=== PATIENT | female | born 1940 | race Hispanic/Latino ===

== ENCOUNTER → 2017-08-03 | Outpatient (CLI) | payer MEDICARE | END | disposition home or self-care (01) | LOC: OIH 14:25 | PROVIDERS: ATTEND Family Medicine | DX: R05 Cough (principal); R06.02 Shortness of breath; M47.895 Other spondylosis, thoracolumbar region | CPT/HCPCS: 71046 ==

== ENCOUNTER 2018-04-24 11:36 | Emergency (ER) | payer MEDICARE ==
[2018-04-24 12:05] LABS: BILIRUBIN,URINE Negative (NEGATIVE); COLOR,URINE Dark Yellow (YELLOW); GLUCOSE, URINE (UA) Negative (NEGATIVE); KETONES,URINE Trace mg/dL (NEGATIVE); LEUKOCYTE ESTERASE ,URINE Trace (NEGATIVE); NITRATE,URINE Negative (NEGATIVE); OCCULT BLOOD,URINE Negative (NEGATIVE); PH,URINE 6.5 (5.0-8.0); PROTEIN,URINE POS 1+ (NEGATIVE)
[2018-04-24 12:07] LABS: APPEARANCE,URINE SLIGHTLY CLOUDY (CLEAR)
[2018-04-24 12:21] LABS: BASOPHILS % (AUTO) 0.5 % (0.0-5.0); EOSINOPHILS % (AUTO) 2.6 % (0.0-8.0); HEMATOCRIT 38.4 % (36-48); LYMPHOCYTES % (AUTO) 36.9 % (21.0-51.0); MEAN CORPUSCULAR HEMOGLOBIN 29.4 pg (27.0-33.0); MEAN CORPUSCULAR HGB CONC 32.5 g/dL (32.0-36.0); MEAN CORPUSCULAR VOLUME 90.5 fL (79-99); MONOCYTES % (AUTO) 11.1 % (3.0-13.0); NEUTROPHILS % (AUTO) 48.9 % (40.0-77.0); PLATELET COUNT (AUTO) 217 K/uL (130-400); RED BLOOD CELL COUNT(AUTO) 4.25 MIL/uL (4.00-5.50); RED CELL DISTRIBUTION WIDTH 14.6 % (11.0-15.5); WHITE BLOOD COUNT (AUTO) 5.6 K/uL (4.8-10.8)
[2018-04-24 12:22] LABS: BACTERIA,URINE Rare /HPF (None Seen); MUCUS,URINE Moderate LPF (None Seen); RBC,URINE None Seen /HPF (0-1); WBC,URINE 0-1 /HPF (0-1)
[2018-04-24 12:31] LABS: CREATININE 0.6 mg/dL (0.5-1.5); POTASSIUM 4.5 mmol/L (3.5-5.1)
[2018-04-24 12:36] LABS: ALBUMIN 3.8 g/dL (3.5-5.0); BILIRUBIN,TOTAL 0.4 mg/dL (0.2-1.0)
== END 2018-04-24 14:09 | disposition home or self-care (01) ==
LOC: EDH 11:36
DX: F41.1 Generalized anxiety disorder (principal); I10 Essential (primary) hypertension; M19.90 Unspecified osteoarthritis, unspecified site; Z98.890 Other specified postprocedural states; Z90.710 Acquired absence of both cervix and uterus
CPT/HCPCS: 36415; 71045; 80053; 81001; 84484; 85025; 93005

== ENCOUNTER 2018-10-01 00:28 | Emergency (ER) | payer MEDICARE ==
[2018-10-01 01:13] LABS: BASOPHILS % (AUTO) 0.5 % (0.0-5.0); EOSINOPHILS % (AUTO) 2.3 % (0.0-8.0); HEMATOCRIT 34.9 % (36-48); LYMPHOCYTES % (AUTO) 37.8 % (21.0-51.0); MEAN CORPUSCULAR HEMOGLOBIN 29.3 pg (27.0-33.0); MEAN CORPUSCULAR HGB CONC 32.7 g/dL (32.0-36.0); MEAN CORPUSCULAR VOLUME 89.5 fL (79-99); MONOCYTES % (AUTO) 12.2 % (3.0-13.0); NEUTROPHILS % (AUTO) 47.2 % (40.0-77.0); PLATELET COUNT (AUTO) 197 K/uL (130-400); RED CELL DISTRIBUTION WIDTH 14.5 % (11.0-15.5); WHITE BLOOD COUNT (AUTO) 6.9 K/uL (4.8-10.8)
[2018-10-01 01:24] LABS: CREATININE 0.8 mg/dL (0.5-1.5); POTASSIUM 4.3 mmol/L (3.5-5.1)
[2018-10-01 01:30] LABS: B-TYPE NATRIURETIC PEPTIDE 94 pg/mL (0-100)
[2018-10-01 01:32] LABS: ALBUMIN 3.6 g/dL (3.5-5.0); BILIRUBIN,DIRECT 0.1 mg/dL (0.0-0.3); BILIRUBIN,TOTAL 0.2 mg/dL (0.2-1.0); TOTAL PROTEIN, SERUM 7.4 g/dL (6.0-8.3)
[2018-10-01] MEDS ORDERED: ACETAMINOPHEN EXTRA STRENGTH 500 MG TABLET ONE (02:12)
== END 2018-10-01 05:36 | disposition home or self-care (01) ==
LOC: EDH 00:28
DX: I10 Essential (primary) hypertension (principal); R51 Headache; F41.1 Generalized anxiety disorder; Z88.0 Allergy status to penicillin
CPT/HCPCS: 36415; 80048; 80076; 82550; 83735; 83880; 84484; 85025; 93005

== ENCOUNTER → 2018-11-08 | Outpatient (CLI) | payer MEDICARE | END | disposition home or self-care (01) | LOC: SHCH 15:04 | PROVIDERS: ATTEND Internal Medicine Cardiovascular Disease | DX: I11.9 Hypertensive heart disease without heart failure (principal) | CPT/HCPCS: 93306 ==

== ENCOUNTER 2019-04-01 10:09 | Day surgery (SDC) | payer MEDICARE ==
[2019-03-28 09:27] VITALS: BP 137/56
[2019-03-28 09:33] LABS: BASOPHILS % (AUTO) 0.3 % (0.0-5.0); HEMATOCRIT 36.8 % (36-48); LYMPHOCYTES % (AUTO) 40.2 % (21.0-51.0); MEAN CORPUSCULAR HEMOGLOBIN 27.3 pg (27.0-33.0); MEAN CORPUSCULAR HGB CONC 29.9 g/dL (32.0-36.0); MEAN CORPUSCULAR VOLUME 91.3 fL (79-99); MONOCYTES % (AUTO) 10.4 % (3.0-13.0); NEUTROPHILS % (AUTO) 46.9 % (40.0-77.0); PLATELET COUNT (AUTO) 270 K/uL (130-400); RED BLOOD CELL COUNT(AUTO) 4.03 MIL/uL (4.00-5.50); RED CELL DISTRIBUTION WIDTH 14.4 % (11.0-15.5); WHITE BLOOD COUNT (AUTO) 6.1 K/uL (4.8-10.8)
[2019-03-28 09:44] LABS: CREATININE 0.6 mg/dL (0.5-1.5); POTASSIUM 4.6 mmol/L (3.5-5.1)
[2019-03-28 09:47] LABS: APPEARANCE,URINE Cloudy (CLEAR); BILIRUBIN,URINE Negative (NEGATIVE); COLOR,URINE Dark Yellow (YELLOW); GLUCOSE, URINE (UA) Negative (NEGATIVE); KETONES,URINE Negative (NEGATIVE); LEUKOCYTE ESTERASE ,URINE Small (NEGATIVE); NITRATE,URINE Negative (NEGATIVE); OCCULT BLOOD,URINE Negative (NEGATIVE); PROTEIN,URINE Negative (NEGATIVE)
[2019-03-28 09:51] LABS: INR 0.95 (0.85-1.15); PARTIAL THROMBOPLASTIN TIME 26.3 SEC (26.3-35.5)
[2019-03-28 09:57] LABS: BACTERIA,URINE Rare /HPF (None Seen); MUCUS,URINE Few LPF (None Seen); RBC,URINE 0-1 /HPF (0-1); SQUAMOUS EPITHELIAL CELL,UR Few /HPF (0-2); WBC,URINE 0-1 /HPF (0-1)
--- NOTE | 2019-03-28 16:46 | NUR ---
PER DR. FINCH NO PRE-MED TO GIVE FOR SHRIMP ALLERGY.
[2019-04-01] VITALS (10 sets, daily range): BP systolic 123–150; BP diastolic 56–74
[~2019-04-01] VITALS: Ht 158.8 cm; Wt 83.0 kg
[~2019-04-01 10:09] MED LIST: ACET650T24 PO; ALBU90AE IH; AMLO5TAB9 PO; ASPI-1181 PO; HYOS-28 PO; ISOS30TA6 PO; LORA2TAB80 PO; MECL-160 PO; PANT40TA25 PO; PROCTOCM PR
[2019-04-01] MEDS ORDERED: SODIUM CHLORIDE 0.9% 1000ML 1,000 ML IV ONE (10:11)
--- NOTE | 2019-04-01 10:30 | NUR ---
ASSESSMENT PT HERE FOR PROCEDURE. VERY ANXIOUS. CRYING. SON AT BEDSIDE. PT DECIDING TO GO AHEAD WITH PROCEDURE.
[2019-04-01] MEDS ORDERED: NITROGLYCERIN 5 MG/ML 10 ML VIAL IV ONE (11:25)
[2019-04-01] MEDS ORDERED: MIDAZOLAM HCL 1 MG/ML 2ML VIAL ONE ×2 (11:25→11:35)
[2019-04-01] MEDS ORDERED: IOHEXOL 350 MG/ML 100ML INFUS..BTL IV ONE ×2 (11:25→11:26)
[2019-04-01] MEDS ORDERED: LIDOCAINE HCL 2% 20ML ONE (11:26)
[2019-04-01] MEDS ORDERED: BIVALIRUDIN 250 MG/VIAL IV ONE (11:26)
[2019-04-01] MEDS ORDERED: FENTANYL CITRATE PF 50 MCG/1 ML 2ML VIAL ONE (11:33)
--- NOTE | 2019-04-01 11:35 | NUR ---
PROCEDURE PT TAKEN TO PROCEDURE VIA [employer] SPECIALIST STAFF LIDIA LARSON.
[2019-04-01] MEDS ORDERED: [UNRECOGNIZED DRUG - OTHER] PO (11:41)
[2019-04-01] MEDS ORDERED: SODIUM CHLORIDE 0.9% 1000ML 1,000 ML IV SCH (12:38)
[2019-04-01] MEDS ORDERED: DEXTROSE 50%-WATER 50 ML DISP.SYRIN IV PRN (12:45)
[2019-04-01] MEDS ORDERED: NITROGLYCERIN 0.4 MG SL TAB SL PRN (12:45)
[2019-04-01] MEDS ORDERED: GLUCAGON 1MG KIT 1 MG ML IM PRN (12:45)
[2019-04-01] MEDS ORDERED: METOPROLOL TARTRATE 1 MG/ML 5ML VIAL IV PRN (12:45)
[2019-04-01] MEDS ORDERED: ACETAMINOPHEN-CODEINE 300/30MG TAB PO PRN (12:45)
--- NOTE | 2019-04-01 13:00 | NUR ---
ASSESSMENT RECEIVED PT FROM CLASSROOM ASSISTANTSTU LEVY RN. PT [id number]. INSTRUCTED ON IMPORTANCE OF KEEPING RIGHT LEG STRAIGHT AND NOT TO LIFT HEAD UP OFF OF BED AND NOT TO MOVE RIGHT LEG. PT VERBALIZED UNDERSTANDING.
--- NOTE | 2019-04-01 16:16 | NUR ---
REPORT REPORT GIVEN TO LIDIA IRWIN. PT BEDREST COMPLETE. SITTING UP IN BED WITH NO DIFFICULTIES. INSTRUCTIONS GIVEN TO PT AND PTS SON. DENIES ANY PAIN, SOB.
--- NOTE | 2019-04-01 16:21 | NUR ---
REPORT RECEIVED REPORT FROM Eric BATES RN TO RESUME CARE OF PATIENT , PT AWAKE AND ALERT IN BED,NO DISTRESS NOTED. DENIED ANY PAIN OR DISCOMFORTS. SON AT BEDSIDE
--- NOTE | 2019-04-01 17:15 | NUR ---
dc pt dc home via [place],no distress noted. pt denied any pain or discomforts. pt accompanied by son. right groin with no bleeding or hematoma. vs stable.
== END 2019-04-01 17:15 | disposition home or self-care (01) ==
LOC: DAH 10:09
PROVIDERS: ATTEND Internal Medicine Cardiovascular Disease
DX: R07.9 Chest pain, unspecified (principal); I25.10 Atherosclerotic heart disease of native coronary artery without angina pectoris; I11.9 Hypertensive heart disease without heart failure; M19.90 Unspecified osteoarthritis, unspecified site; Z79.82 Long term (current) use of aspirin; Z79.899 Other long term (current) drug therapy; Z88.0 Allergy status to penicillin; Z90.49 Acquired absence of other specified parts of digestive tract; Z98.890 Other specified postprocedural states; Z87.891 Personal history of nicotine dependence; Z91.013 Allergy to seafood; Z83.3 Family history of diabetes mellitus
CPT/HCPCS: 36415; 71045; 80048; 81001; 85025; 85610; 85730; 93005; 93460; A4215; A4216; A4221; A4222; A4223 ×2; A4606; A4663; C1760; C1894 ×3; J1644; J2250 ×2; J3010; J3490 ×2; J7030; Q9965; Q9967; 99156; 99157; J0583

== ENCOUNTER 2020-08-16 05:34 | Emergency (ER) | payer MEDICARE ==
[~2020-08-16 05:34] MED LIST changes: +AMLO-257 PO; -AMLO5TAB9 PO; -ASPI-1181 PO; +ASPI-1443 PO; -ISOS30TA6 PO; +ISOS30TA92 PO; -PANT40TA25 PO; +PANT40TA54 PO; +[UNRECOGNIZED DRUG - OTHER] PO
== END 2020-08-16 10:29 | disposition home or self-care (01) ==
LOC: EDH 05:34
DX: F41.9 Anxiety disorder, unspecified (principal); I10 Essential (primary) hypertension; M19.90 Unspecified osteoarthritis, unspecified site; Z91.013 Allergy to seafood; Z88.0 Allergy status to penicillin
CPT/HCPCS: 93005

== ENCOUNTER 2020-08-22 06:14 | Emergency (ER) | payer MEDICARE ==
[~2020-08-22] VITALS: Ht 162.6 cm; Wt 81.6 kg
[2020-08-22 06:26] VITALS: BP 153/93
[2020-08-22 06:29] VITALS: BP 136/72
[2020-08-22 08:00] VITALS: BP 153/56
[2020-08-22] MEDS ORDERED: METOCLOPRAMIDE 10 MG/2 ML VIAL IVP SCH (08:30)
[2020-08-22] MEDS ORDERED: KETOROLAC 15MG/ML VIAL (15MG/ML) IV SCH (08:30)
[2020-08-22 08:59] LABS: BASOPHILS % (AUTO) 0.3 % (0.0-5.0); EOSINOPHILS % (AUTO) 0.5 % (0.0-8.0); HEMATOCRIT 40.8 % (36-48); LYMPHOCYTES % (AUTO) 24.5 % (21.0-51.0); MEAN CORPUSCULAR HGB CONC 31.1 g/dL (32.0-36.0); MEAN CORPUSCULAR VOLUME 96.5 fL (79-99); MONOCYTES % (AUTO) 9.7 % (3.0-13.0); NEUTROPHILS % (AUTO) 64.8 % (40.0-77.0); PLATELET COUNT (AUTO) 270 K/uL (130-400); RED BLOOD CELL COUNT(AUTO) 4.23 MIL/uL (4.00-5.50); RED CELL DISTRIBUTION WIDTH 14.3 % (11.0-15.5); WHITE BLOOD COUNT (AUTO) 6.2 K/uL (4.8-10.8)
[2020-08-22 09:14] VITALS: BP 147/61
[2020-08-22 09:37] LABS: B-TYPE NATRIURETIC PEPTIDE 46 pg/mL (0-100)
[2020-08-22 09:47] LABS: ALBUMIN 3.7 g/dL (3.5-5.0); BILIRUBIN,TOTAL 0.3 mg/dL (0.2-1.0); CREATININE 0.5 mg/dL (0.5-1.5); POTASSIUM 3.8 mmol/L (3.5-5.1); TOTAL PROTEIN, SERUM 7.9 g/dL (6.0-8.3)
[2020-08-22 10:45] LABS: APPEARANCE,URINE Clear (CLEAR); BILIRUBIN,URINE Negative (NEGATIVE); COLOR,URINE Dark Yellow (YELLOW); GLUCOSE, URINE (UA) Negative (NEGATIVE); KETONES,URINE Negative (NEGATIVE); LEUKOCYTE ESTERASE ,URINE Negative (NEGATIVE); NITRATE,URINE Negative (NEGATIVE); OCCULT BLOOD,URINE Negative (NEGATIVE); PROTEIN,URINE POS 1+ mg/dL (NEGATIVE)
[2020-08-22] MEDS ORDERED: AMLODIPINE BESYLATE 5 MG TAB PO SCH (11:00)
[2020-08-22] MEDS ORDERED: ACETAMINOPHEN 325 MG TAB PO ONE (11:00)
[2020-08-22] MEDS ORDERED: ACETAMINOPHEN 325 MG TAB PO SCH (11:00)
[2020-08-22 11:12] LABS: RBC,URINE 0-1 /HPF (0-1)
[2020-08-22 11:13] LABS: BACTERIA,URINE Rare /HPF (None Seen); WBC,URINE 0-1 /HPF (0-1)
[2020-08-22 11:15] VITALS: BP 152/62
[2020-08-22] MEDS ORDERED: MORPHINE 2 MG SYG (2MG/1ML) IVP SCH (11:30)
[2020-08-22] MEDS ORDERED: FLUT16H NASAL (12:33)
[2020-08-22 12:34] VITALS: BP 139/53
== END 2020-08-22 12:56 | disposition home or self-care (01) ==
LOC: EDH 06:22
DX: R51.9 Headache, unspecified (principal); F32.9 Major depressive disorder, single episode, unspecified; G89.29 Other chronic pain; R10.9 Unspecified abdominal pain; M54.5 Low back pain; F41.9 Anxiety disorder, unspecified; Z88.0 Allergy status to penicillin; Z91.013 Allergy to seafood; Z79.82 Long term (current) use of aspirin; Z79.899 Other long term (current) drug therapy
CPT/HCPCS: 36415; 70450; 71045; 80053; 81001; 82550; 83605; 83690; 83735; 83880; 84484; 85025; 85651; 93005; 96374; 96375 ×2; 99285; J1885; J2765

== ENCOUNTER 2022-08-29 11:21 | Inpatient (IN) | payer MEDICARE ==
[~2022-08-29] VITALS: Ht 157.5 cm; Wt 81.0 kg
[~2022-08-29 11:21] MED LIST changes: +ACET-3204 PO; -ACET650T24 PO; +FLUT16H NASAL
[2022-08-29] MEDS ORDERED: IPRATROPIUM 0.5 MG/2.5 ML INH IH ONE (11:30)
[2022-08-29] MEDS ORDERED: ALBUTEROL 0.083% 2.5 MG/3 ML INH IH ONE (11:30)
[2022-08-29 11:53] LABS: BASOPHILS % (AUTO) 0.4 % (0.0-5.0); EOSINOPHILS % (AUTO) 0.6 % (0.0-8.0); HEMATOCRIT 36.7 % (36-48); MEAN CORPUSCULAR HEMOGLOBIN 28.6 pg (27.0-33.0); MEAN CORPUSCULAR HGB CONC 30.8 g/dL (32.0-36.0); MEAN CORPUSCULAR VOLUME 92.9 fL (79-99); MONOCYTES % (AUTO) 10.3 % (3.0-13.0); NEUTROPHILS % (AUTO) 76.3 % (40.0-77.0); PLATELET COUNT (AUTO) 258 K/uL (130-400); RED BLOOD CELL COUNT(AUTO) 3.95 MIL/uL (4.00-5.50); RED CELL DISTRIBUTION WIDTH 13.8 % (11.0-15.5); WHITE BLOOD COUNT (AUTO) 7.8 K/uL (4.8-10.8)
[2022-08-29 12:04] LABS: ABG BASE EXCESS 6.8 mmol/L (-2.0-3.0); ABG HCO3 38.6 mmol/L (21.0-28.0); ABG OXYGEN SATURATION 95.1 % (95.0-99.0); ABG PCO2 96 mmHg (32-45)
[2022-08-29 12:12] LABS: CREATININE 0.4 mg/dL (0.5-1.5); POTASSIUM 3.9 mmol/L (3.5-5.1)
[2022-08-29 12:16] LABS: ALBUMIN 3.6 g/dL (3.5-5.0); TOTAL PROTEIN, SERUM 7.8 g/dL (6.0-8.3)
[2022-08-29] MEDS ORDERED: AZITHROMYCIN 500MG+NS 250ML IV STA (12:16)
[2022-08-29 12:21] LABS: B-TYPE NATRIURETIC PEPTIDE 215 pg/mL (0-100)
[2022-08-29] MEDS ORDERED: CEFTRIAXONE 1G VIAL IVPB ONE (12:30)
[2022-08-29 13:23] LABS: ABG BASE EXCESS 1.8 mmol/L (-2.0-3.0); ABG HCO3 29.7 mmol/L (21.0-28.0); ABG OXYGEN SATURATION 89.3 % (95.0-99.0); ABG PCO2 60 mmHg (32-45)
[2022-08-29] MEDS ORDERED: MAGNESIUM 2GM PREMIX 50ML 50 ML IV PRN (14:00)
[2022-08-29] MEDS ORDERED: POTASSIUM CHLORIDE 20MEQ/100ML 100 ML IV PRN (14:00)
[2022-08-29] MEDS: AZITHROMYCIN 500MG+NS 250ML IVPB SCH (14:00)
[2022-08-29] MEDS: DOXYCYCLINE 100MG+NS 250ML IV SCH (15:39)
[2022-08-29] MEDS ORDERED: SODIUM CHLORIDE 3% FOR INHALATION 4 ML/AMP VIAL.NEB IH ONE ×3 (15:52→22:51)
[2022-08-29] MEDS: IPRATROPIUM/ALBUTEROL SULFATE 3 ML SOLUTION IH SCH ×2 (18:16→22:54)
[2022-08-29] MEDS ORDERED: CLON0.1T PO (18:21)
[2022-08-29] MEDS ORDERED: GABA-529 PO (18:23)
[2022-08-29] MEDS ORDERED: AMLO-257 PO (18:25)
[2022-08-29] MEDS ORDERED: ONDA4TAB10 PO (18:26)
[2022-08-29] MEDS ORDERED: SERT-439 PO (18:29)
[2022-08-29] MEDS ORDERED: LORAZEPAM 2 MG TABLET PO PRN (18:30)
[2022-08-29] MEDS ORDERED: LORAZEPAM 1 MG TABLET ONE (18:47)
[2022-08-29] MEDS ORDERED: LORAZEPAM 1 MG TABLET PO PRN (19:00)
[2022-08-29 20:29] LABS: ABG BASE EXCESS 9.5 mmol/L (-2.0-3.0); ABG HCO3 39.8 mmol/L (21.0-28.0); ABG PCO2 83 mmHg (32-45)
[2022-08-29] MEDS ORDERED: ACET500P24 PO (23:29)
[2022-08-29] MEDS ORDERED: ACETAMINOPHEN 500 MG TABLET PO PRN (23:45)
[2022-08-30] MEDS: DOXYCYCLINE 100MG+NS 250ML IV SCH ×2 (02:43→15:21)
[2022-08-30] MEDS: IPRATROPIUM/ALBUTEROL SULFATE 3 ML SOLUTION IH SCH ×3 (06:36→18:21)
[2022-08-30 06:47] LABS: ABG BASE EXCESS 8.3 mmol/L (-2.0-3.0); ABG HCO3 39.3 mmol/L (21.0-28.0); ABG OXYGEN SATURATION 98.7 % (95.0-99.0); ABG PCO2 89 mmHg (32-45)
[2022-08-30] MEDS: AMLODIPINE 5 MG TAB PO SCH ×2 (08:22→21:07)
[2022-08-30] MEDS: CLONIDINE HCL 0.1 MG TABLET PO SCH (08:22)
[2022-08-30] MEDS: FAMOTIDINE 20MG VIAL IV SCH (08:22)
[2022-08-30] MEDS: GABAPENTIN 100 MG CAPSULE PO SCH ×3 (08:22→21:07)
[2022-08-30] MEDS: SERTRALINE HCL 50 MG TABLET PO SCH (08:22)
[2022-08-30] MEDS: ASPIRIN 81 MG EC TAB PO SCH (08:22)
[2022-08-30] MEDS: LORAZEPAM 1 MG TABLET PO PRN ×2 (08:23→16:22)
[2022-08-30] MEDS: FUROSEMIDE 40MG VIAL IV SCH ×2 (08:37→21:07)
[2022-08-30 13:06] LABS: ABG HCO3 44.9 mmol/L (21.0-28.0); ABG OXYGEN SATURATION 92.1 % (95.0-99.0); ABG PCO2 81 mmHg (32-45)
[2022-08-30] MEDS: AZITHROMYCIN 500MG+NS 250ML IVPB SCH (15:21)
[2022-08-30] MEDS: BUDESONIDE 0.5 MG/2 ML INH IH SCH (18:21)
[2022-08-30] MEDS: ACETAMINOPHEN 500 MG TABLET PO PRN (21:08)
[2022-08-31] MEDS: IPRATROPIUM/ALBUTEROL SULFATE 3 ML SOLUTION IH SCH ×5 (00:07→23:40)
[2022-08-31 00:40] VITALS: BP 156/68
[2022-08-31] MEDS: LORAZEPAM 1 MG TABLET PO PRN (01:12)
[2022-08-31] MEDS: DOXYCYCLINE 100MG+NS 250ML IV SCH ×2 (03:02→13:55)
[2022-08-31 04:00] VITALS: BP 138/60
[2022-08-31] MEDS: BUDESONIDE 0.5 MG/2 ML INH IH SCH ×2 (06:20→19:25)
[2022-08-31 06:45] LABS: BASOPHILS % (AUTO) 0.5 % (0.0-5.0); EOSINOPHILS % (AUTO) 2.8 % (0.0-8.0); HEMATOCRIT 35.7 % (36-48); MEAN CORPUSCULAR HEMOGLOBIN 28.3 pg (27.0-33.0); MEAN CORPUSCULAR HGB CONC 29.7 g/dL (32.0-36.0); MEAN CORPUSCULAR VOLUME 95.5 fL (79-99); MONOCYTES % (AUTO) 13.4 % (3.0-13.0); PLATELET COUNT (AUTO) 252 K/uL (130-400); RED BLOOD CELL COUNT(AUTO) 3.74 MIL/uL (4.00-5.50); RED CELL DISTRIBUTION WIDTH 14.2 % (11.0-15.5); WHITE BLOOD COUNT (AUTO) 6.5 K/uL (4.8-10.8)
[2022-08-31 07:00] VITALS: BP 128/52
[2022-08-31 07:05] LABS: ALBUMIN 3.2 g/dL (3.5-5.0); CREATININE 0.5 mg/dL (0.5-1.5); MAGNESIUM 1.8 mg/dL (1.80-2.40); POTASSIUM 3.4 mmol/L (3.5-5.1)
[2022-08-31] MEDS: GABAPENTIN 100 MG CAPSULE PO SCH ×3 (09:36→21:21)
[2022-08-31] MEDS: SERTRALINE HCL 50 MG TABLET PO SCH (09:36)
[2022-08-31] MEDS: ASPIRIN 81 MG EC TAB PO SCH (09:36)
[2022-08-31] MEDS: FAMOTIDINE 20MG VIAL IV SCH (09:36)
[2022-08-31] MEDS: AMLODIPINE 5 MG TAB PO SCH ×2 (09:36→21:21)
[2022-08-31] MEDS: CLONIDINE HCL 0.1 MG TABLET PO SCH (09:37)
[2022-08-31 11:00] VITALS: BP 121/42
[2022-08-31] MEDS: LORAZEPAM 0.5 MG TABLET PO PRN ×3 (12:41→17:25)
[2022-08-31] MEDS: FUROSEMIDE 20MG VIAL IV SCH (13:55)
[2022-08-31] MEDS: AZITHROMYCIN 500MG+NS 250ML IVPB SCH (13:56)
[2022-08-31 16:00] VITALS: BP 128/46
[2022-08-31 19:42] VITALS: BP 146/55
[2022-08-31] MEDS: ACETAMINOPHEN 500 MG TABLET PO PRN (21:22)
[2022-09-01] VITALS: BP 120/44
[2022-09-01] MEDS: LORAZEPAM 0.5 MG TABLET PO PRN (01:17)
[2022-09-01] MEDS: DOXYCYCLINE 100MG+NS 250ML IV SCH ×2 (01:17→13:14)
[2022-09-01] MEDS: ACETAMINOPHEN 500 MG TABLET PO PRN ×2 (01:30→20:52)
[2022-09-01 04:38] VITALS: BP 109/52
[2022-09-01] MEDS: BUDESONIDE 0.5 MG/2 ML INH IH SCH ×2 (06:55→19:22)
[2022-09-01] MEDS: IPRATROPIUM/ALBUTEROL SULFATE 3 ML SOLUTION IH SCH ×4 (06:55→23:50)
[2022-09-01 08:38] VITALS: BP 133/78
[2022-09-01] MEDS: GABAPENTIN 100 MG CAPSULE PO SCH ×3 (08:59→20:52)
[2022-09-01] MEDS: AMLODIPINE 5 MG TAB PO SCH ×2 (08:59→20:52)
[2022-09-01] MEDS: ASPIRIN 81 MG EC TAB PO SCH (08:59)
[2022-09-01] MEDS: LORAZEPAM 1 MG TABLET PO PRN ×2 (08:59→17:53)
[2022-09-01] MEDS: FUROSEMIDE 20MG VIAL IV SCH (08:59)
[2022-09-01] MEDS: SERTRALINE HCL 50 MG TABLET PO SCH (09:00)
[2022-09-01] MEDS: CLONIDINE HCL 0.1 MG TABLET PO SCH (09:00)
[2022-09-01] MEDS: FAMOTIDINE 20MG VIAL IV SCH (09:43)
[2022-09-01 12:30] VITALS: BP 123/52
[2022-09-01] MEDS: AZITHROMYCIN 500MG+NS 250ML IVPB SCH (13:14)
[2022-09-01 16:13] VITALS: BP 134/52
[2022-09-01 19:44] VITALS: BP 144/54
[2022-09-02 00:25] VITALS: BP 123/61
[2022-09-02] MEDS: ACETAMINOPHEN 500 MG TABLET PO PRN ×4 (01:28→20:37)
[2022-09-02] MEDS: DOXYCYCLINE 100MG+NS 250ML IV SCH ×2 (01:28→13:38)
[2022-09-02] MEDS: LORAZEPAM 1 MG TABLET PO PRN ×3 (01:28→17:19)
[2022-09-02 05:32] VITALS: BP 131/71
[2022-09-02] MEDS: IPRATROPIUM/ALBUTEROL SULFATE 3 ML SOLUTION IH SCH ×4 (06:25→23:39)
[2022-09-02] MEDS: BUDESONIDE 0.5 MG/2 ML INH IH SCH ×2 (06:25→18:00)
[2022-09-02 08:58] VITALS: BP 124/63
[2022-09-02] MEDS: ASPIRIN 81 MG EC TAB PO SCH (09:03)
[2022-09-02] MEDS: AMLODIPINE 5 MG TAB PO SCH ×2 (09:04→20:37)
[2022-09-02] MEDS: CLONIDINE HCL 0.1 MG TABLET PO SCH (09:04)
[2022-09-02] MEDS: FUROSEMIDE 20MG VIAL IV SCH (09:04)
[2022-09-02] MEDS: GABAPENTIN 100 MG CAPSULE PO SCH ×3 (09:04→20:38)
[2022-09-02] MEDS: SERTRALINE HCL 50 MG TABLET PO SCH (09:04)
[2022-09-02] MEDS: FAMOTIDINE 20MG VIAL IV SCH (09:05)
[2022-09-02] MEDS ORDERED: LACTULOSE 20 GM/30 ML UDCUP PO SCH (11:30)
[2022-09-02 12:44] VITALS: BP 136/59
[2022-09-02 16:53] VITALS: BP 124/46
[2022-09-02] MEDS: AZITHROMYCIN 250 MG TABLET PO SCH (17:12)
[2022-09-02] MEDS ORDERED: LACTULOSE 20 GM/30 ML UDCUP PO PRN (17:30)
[2022-09-02 19:45] VITALS: BP 137/56
[2022-09-02] MEDS: DOXYCYCLINE HYCLATE 100 MG TABLET PO SCH (20:38)
[2022-09-03 00:12] VITALS: BP 137/71
[2022-09-03] MEDS: LORAZEPAM 1 MG TABLET PO PRN ×3 (01:03→17:08)
[2022-09-03 04:08] VITALS: BP 129/68
[2022-09-03] MEDS: IPRATROPIUM/ALBUTEROL SULFATE 3 ML SOLUTION IH SCH ×3 (06:00→19:11)
[2022-09-03] MEDS: BUDESONIDE 0.5 MG/2 ML INH IH SCH ×2 (06:00→19:11)
[2022-09-03 08:30] VITALS: BP 136/46
[2022-09-03] MEDS: FAMOTIDINE 20MG VIAL IV SCH (09:00)
[2022-09-03] MEDS: FUROSEMIDE 20MG VIAL IV SCH (09:00)
[2022-09-03] MEDS: DOXYCYCLINE HYCLATE 100 MG TABLET PO SCH ×2 (09:13→20:51)
[2022-09-03] MEDS: GABAPENTIN 100 MG CAPSULE PO SCH ×3 (09:13→20:51)
[2022-09-03] MEDS: AMLODIPINE 5 MG TAB PO SCH ×2 (09:14→20:51)
[2022-09-03] MEDS: ASPIRIN 81 MG EC TAB PO SCH (09:14)
[2022-09-03] MEDS: CLONIDINE HCL 0.1 MG TABLET PO SCH (09:14)
[2022-09-03] MEDS: SERTRALINE HCL 50 MG TABLET PO SCH (09:14)
[2022-09-03 12:18] VITALS: BP 121/82
[2022-09-03 16:16] VITALS: BP 115/57
[2022-09-03] MEDS: AZITHROMYCIN 250 MG TABLET PO SCH (17:08)
[2022-09-03 19:30] VITALS: BP 111/51
[2022-09-04] VITALS: BP 161/91
[2022-09-04] MEDS: IPRATROPIUM/ALBUTEROL SULFATE 3 ML SOLUTION IH SCH ×5 (01:03→23:33)
[2022-09-04] MEDS: LORAZEPAM 1 MG TABLET PO PRN ×3 (01:03→16:44)
[2022-09-04 04:35] VITALS: BP 129/47
[2022-09-04] MEDS: BUDESONIDE 0.5 MG/2 ML INH IH SCH ×2 (06:22→18:28)
[2022-09-04 08:30] VITALS: BP 120/41
[2022-09-04] MEDS: GABAPENTIN 100 MG CAPSULE PO SCH ×3 (08:34→21:54)
[2022-09-04] MEDS: DOXYCYCLINE HYCLATE 100 MG TABLET PO SCH ×2 (08:34→21:55)
[2022-09-04] MEDS: SERTRALINE HCL 50 MG TABLET PO SCH (08:34)
[2022-09-04] MEDS: CLONIDINE HCL 0.1 MG TABLET PO SCH (08:34)
[2022-09-04] MEDS: ASPIRIN 81 MG EC TAB PO SCH (08:34)
[2022-09-04] MEDS: AMLODIPINE 5 MG TAB PO SCH ×2 (08:34→21:54)
[2022-09-04] MEDS: FUROSEMIDE 20MG VIAL IV SCH (08:35)
[2022-09-04] MEDS: FAMOTIDINE 20MG VIAL IV SCH (08:36)
[2022-09-04 13:27] VITALS: BP 132/52
[2022-09-04 16:30] VITALS: BP 129/47
[2022-09-04] MEDS: AZITHROMYCIN 250 MG TABLET PO SCH (16:45)
[2022-09-04 20:00] VITALS: BP 116/50
[2022-09-05] VITALS: BP 124/47
[2022-09-05] MEDS: LORAZEPAM 1 MG TABLET PO PRN ×2 (01:23→09:50)
[2022-09-05 04:00] VITALS: BP 120/56
[2022-09-05] MEDS: BUDESONIDE 0.5 MG/2 ML INH IH SCH (06:50)
[2022-09-05] MEDS: IPRATROPIUM/ALBUTEROL SULFATE 3 ML SOLUTION IH SCH ×2 (06:50→11:41)
[2022-09-05 08:45] VITALS: BP 116/48
[2022-09-05 09:00] VITALS: BP 116/48
[2022-09-05] MEDS ORDERED: FUROSEMIDE 40 MG TABLET PO SCH (09:00)
[2022-09-05] MEDS ORDERED: FAMOTIDINE 20MG TAB PO SCH (09:00)
[2022-09-05] MEDS: CLONIDINE HCL 0.1 MG TABLET PO SCH (09:00)
[2022-09-05] MEDS: SERTRALINE HCL 50 MG TABLET PO SCH (09:39)
[2022-09-05] MEDS: ASPIRIN 81 MG EC TAB PO SCH (09:39)
[2022-09-05] MEDS: GABAPENTIN 100 MG CAPSULE PO SCH ×2 (09:39→14:55)
[2022-09-05] MEDS: AMLODIPINE 5 MG TAB PO SCH (09:39)
[2022-09-05] MEDS: DOXYCYCLINE HYCLATE 100 MG TABLET PO SCH (09:40)
== END 2022-09-05 14:50 | disposition home or self-care (01) | DRG 177 ==
LOC: EDH 11:21 → EDHIP 13:41 → 2AH 08-31 00:37
PROVIDERS: ADMIT Internal Medicine; ATTEND Internal Medicine
PROC: 5A09457 Assistance with Respiratory Ventilation, 24-96 Consecutive Hours, Continuous Positive Airway Pressure (ICD-10-PCS; principal; 2022-08-29)
DX: J69.0 Pneumonitis due to inhalation of food and vomit (principal); G93.41 Metabolic encephalopathy; J96.21 Acute and chronic respiratory failure with hypoxia; J96.22 Acute and chronic respiratory failure with hypercapnia; E87.29 Other acidosis; G72.81 Critical illness myopathy; J90 Pleural effusion, not elsewhere classified; Z20.822 Contact with and (suspected) exposure to COVID-19; E78.5 Hyperlipidemia, unspecified; F13.10 Sedative, hypnotic or anxiolytic abuse, uncomplicated; F32.9 Major depressive disorder, single episode, unspecified; R26.81 Unsteadiness on feet; F41.9 Anxiety disorder, unspecified; I10 Essential (primary) hypertension; R62.7 Adult failure to thrive; Z91.199 Patient's noncompliance with other medical treatment and regimen due to unspecified reason; Z99.81 Dependence on supplemental oxygen
CPT/HCPCS: 36415; 36600; 71045; 71250; 80053; 82803; 82948; 83605; 83735; 83880; 84484; 85025; 86140; 86738; 87040; 87635; 87804; 92610; 93005; 93306; 94640; 94660; 94664; 94667; 94668; 97039; 99291; C9803; G0378; J0456; J0696; J1940; J3490

== ENCOUNTER 2024-01-19 13:04 | Emergency (ER) | payer OTHER, MEDICARE ==
[~2024-01-19] VITALS: Ht 165.1 cm; Wt 79.4 kg
[~2024-01-19 13:04] MED LIST changes: -ACET-3204 PO; +ACET500P24 PO; -ALBU90AE IH; +CLON0.1T PO; -FLUT16H NASAL; +GABA-529 PO; -HYOS-28 PO; -ISOS30TA92 PO; -LORA2TAB80 PO; -MECL-160 PO; +MECL-302 PO; +METR-172 PO; +ONDA-243 PO; -PROCTOCM PR; +SERT-439 PO; -[UNRECOGNIZED DRUG - OTHER] PO
[2024-01-19 15:14] LABS: BASOPHILS # (AUTO) 0.02 K/uL (0.00-0.20); BASOPHILS % (AUTO) 0.2 % (0.0-5.0); EOSINOPHILS # (AUTO) 0.01 K/uL (0.00-0.70); EOSINOPHILS % (AUTO) 0.1 % (0.0-8.0); HEMATOCRIT 32.2 % (36-48); IMMATURE GRANULOCYTE ABSOLUTE 0.02 K/uL (0-1); LYMPHOCYTES # (AUTO) 1.2 K/uL (1.0-4.8); LYMPHOCYTES % (AUTO) 14.2 % (21.0-51.0); MEAN CORPUSCULAR HEMOGLOBIN 28.8 pg (27.0-33.0); MEAN CORPUSCULAR HGB CONC 33.2 g/dL (32.0-36.0); MEAN CORPUSCULAR VOLUME 86.6 fL (79-99); MONOCYTES # (AUTO) 1.1 K/uL (0.1-1.0); MONOCYTES % (AUTO) 12.7 % (3.0-13.0); NEUTROPHILS # (AUTO) 6.3 K/uL (1.8-7.7); NEUTROPHILS % (AUTO) 72.6 % (40.0-77.0); PLATELET COUNT (AUTO) 249 K/uL (130-400); RED BLOOD CELL COUNT(AUTO) 3.72 MIL/uL (4.00-5.50); RED CELL DISTRIBUTION WIDTH 14.5 % (11.0-15.5); WHITE BLOOD COUNT (AUTO) 8.7 K/uL (4.8-10.8)
[2024-01-19 16:00] LABS: CREATININE 0.6 mg/dL (0.5-1.0); POTASSIUM 3.1 mmol/L (3.5-5.1)
[2024-01-19] MEDS ORDERED: SUCR1TAB28 PO (16:07)
[2024-01-19] MEDS ORDERED: OMEP40CA21 PO (16:07)
[2024-01-19] MEDS: FAMOTIDINE 20MG VIAL IV ONE (16:11)
[2024-01-19] MEDS: PoTASSium BIcarbonate/CIT AC 25 MEQ TABLET.EFF PO ONE (16:11)
[2024-01-19] MEDS ORDERED: HYDR50CA50 PO (16:25)
[2024-01-19] MEDS: LORazepam 1 MG TABLET PO ONE (17:10)
[2024-01-19 17:35] VITALS: BP 156/100; PULSE 83; RESP 20; TEMP 98.3; O2SAT 93
[2024-01-19] MEDS: hydrOXYzine 25 MG TABLET PO SCH (17:35)
== END 2024-01-19 17:50 | disposition home or self-care (01) ==
LOC: EDH 13:04
DX: K29.00 Acute gastritis without bleeding (principal); E87.6 Hypokalemia; E87.1 Hypo-osmolality and hyponatremia; E78.00 Pure hypercholesterolemia, unspecified; E86.0 Dehydration; I11.9 Hypertensive heart disease without heart failure; E11.9 Type 2 diabetes mellitus without complications; F41.9 Anxiety disorder, unspecified; Z79.82 Long term (current) use of aspirin; Z79.899 Other long term (current) drug therapy; Z88.0 Allergy status to penicillin; Z88.8 Allergy status to other drugs, medicaments and biological substances
CPT/HCPCS: 99285; 96374; 71045; 84484; 80048; 83690; 85025; 36415; 93005; J3490